=== PATIENT | male | born 1980 | race Two or more races ===

== ENCOUNTER 2025-04-20 13:31 | Emergency (ER) | payer BC ==
[~2025-04-20] VITALS: Ht 170.2 cm; Wt 95.3 kg
[2025-04-20 14:42] LABS: PLATELET COUNT (AUTO) 257 K/uL (150-450); RED BLOOD CELL COUNT(AUTO) 4.36 MIL/uL (4.5-6.0); RED CELL DISTRIBUTION WIDTH 13.8 % (11.5-15.0); WHITE BLOOD COUNT (AUTO) 8.0 K/uL (4.3-11.0)
[2025-04-20 14:53] VITALS: BP 154/89; TEMP 98.5; O2SAT 99
[2025-04-20 15:12] LABS: CALCIUM, SERUM 9.2 mg/dL (8.5-10.1); CREATININE 1.5 mg/dL (0.6-1.3); SODIUM SERUM 147 mmol/L (136-145); UREA NITROGEN, BLOOD 17 mg/dL (7-18)
[2025-04-20 15:18] LABS: ASPARTATE AMINOTRANSFERASE 116 U/L (15-37); TOTAL PROTEIN, SERUM 7.8 g/dL (6.4-8.2)
[2025-04-20 15:19] LABS: ALCOHOL, BLOOD < 3 mg/dL (0-10)
== END 2025-04-20 14:54 | disposition home or self-care (01) ==
LOC: ER 13:34
DX: F19.10 Other psychoactive substance abuse, uncomplicated (principal); Z20.822 Contact with and (suspected) exposure to COVID-19
CPT/HCPCS: 36415; 80048-TC; 80076-TC; 85025-TC; G0480